=== PATIENT | male | born 1965 | race Caucasian/White ===

== ENCOUNTER 2017-01-15 20:52 | Emergency (ER) | payer OTHER ==
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
[~2017-01-15 20:52] MED LIST: ACTOS45 MG PO; ASPIRIN EC81 MG PO; BACTROBAN 2% OI22 GM TOP; CELEBREX200 MG PO; COLACE100 MG PO; COREG25 MG PO; COZAAR25 MG PO; COZAAR50 MG PO; FLOMAX0.4 MG PO; GLUCOPHAGE1000 MG; GLUCOPHAGE1000 MG PO; GUIATUSS AC 1515 ML PO; HUMALOG KW200 UNIT/1 SUB-Q; HUMALOG SUB-Q; HUMALOG100 UNIT/1 SUB-Q; K-TAB 10MEQ10 MEQ PO; LANTUS (IN100 UNIT/M SUB-Q; LASIX20 MG PO; LEVEMIR FL100 UNIT/1 SUB-Q; LEVEMIR100 UNIT/1 SUB-Q; LEXAPRO10 MG PO; LIPITOR40 MG PO; LYRICA 100MG C100 MG PO; MILK OF MA400 MG/5 M PO; MIRALAX17 GM PO; MOBIC15 MG PO; MUCINEX600 MG PO; NEURONTIN300 MG PO; NEURONTIN600 MG; NEURONTIN800 MG PO; NITROSTAT 0.40.4 MG SL; NORCO 5-325 MG1 TAB PO; NORVASC2.5 MG PO; NORVASC5 MG PO; NOVOLOG100 UNIT/M SUB-Q; NUCYNTA100 MG PO; OCEAN NASAL) (A44 ML NOSE; OPANA ER5 MG PO; OXYCONTIN EXTEN20 MG PO; PAXIL20 MG PO; PERCOCET 10-321 EACH PO; PERCOCET 5-3251 EACH PO; PLAVIX75 MG PO; PROVENTIL OR V6.7 GM INH; ROBITUSSIN100 MG/5 M PO; SENOKOT S (S1 TABLET PO; SURFAK240 MG PO; TOUJEO SOL300 UNIT/1 SUB-Q; VALIUM5 MG PO; XANAX1 MG PO; XANAX2 MG PO
== END 2017-01-15 21:58 | disposition disaster alternative care site (69) ==
LOC: GMED 20:52
DX: M79.645 Pain in left finger(s) (principal); I10 Essential (primary) hypertension; E11.9 Type 2 diabetes mellitus without complications; E78.5 Hyperlipidemia, unspecified; M19.90 Unspecified osteoarthritis, unspecified site; I25.10 Atherosclerotic heart disease of native coronary artery without angina pectoris; Z98.890 Other specified postprocedural states; Z88.6 Allergy status to analgesic agent; Z98.1 Arthrodesis status; Z90.49 Acquired absence of other specified parts of digestive tract
CPT/HCPCS: J1170; J2550

== ENCOUNTER 2017-02-06 20:34 | Emergency (ER) | payer OTHER ==
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
== END 2017-02-06 21:02 | disposition disaster alternative care site (69) ==
LOC: GMED 20:34
DX: M79.602 Pain in left arm (principal); Z98.890 Other specified postprocedural states; Z88.6 Allergy status to analgesic agent; Z79.82 Long term (current) use of aspirin; Z79.899 Other long term (current) drug therapy; Z79.84 Long term (current) use of oral hypoglycemic drugs
CPT/HCPCS: J1170; J2550

== ENCOUNTER 2017-03-23 19:08 | Emergency (ER) | payer OTHER ==
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
== END 2017-03-23 20:59 | disposition disaster alternative care site (69) ==
LOC: GMED 19:08
DX: M25.461 Effusion, right knee (principal); G89.29 Other chronic pain; E11.9 Type 2 diabetes mellitus without complications; E78.00 Pure hypercholesterolemia, unspecified; E66.9 Obesity, unspecified; F19.10 Other psychoactive substance abuse, uncomplicated; Z88.8 Allergy status to other drugs, medicaments and biological substances; Z79.84 Long term (current) use of oral hypoglycemic drugs; W19.XXXA Unspecified fall, initial encounter; Y92.002 Bathroom of unspecified non-institutional (private) residence as the place of occurrence of the external cause
CPT/HCPCS: J1170

== ENCOUNTER 2017-03-24 21:44 | Emergency (ER) | payer OTHER ==
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
== END 2017-03-24 23:23 | disposition disaster alternative care site (69) ==
LOC: GMED 21:44
DX: S82.201A Unspecified fracture of shaft of right tibia, initial encounter for closed fracture (principal); S82.401A Unspecified fracture of shaft of right fibula, initial encounter for closed fracture; E11.9 Type 2 diabetes mellitus without complications; Z88.6 Allergy status to analgesic agent; Z79.4 Long term (current) use of insulin; Z79.899 Other long term (current) drug therapy; W19.XXXA Unspecified fall, initial encounter
CPT/HCPCS: J2270

== ENCOUNTER 2017-03-28 23:26 | Emergency (ER) | payer OTHER ==
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
== END 2017-03-29 00:49 | disposition disaster alternative care site (69) ==
LOC: GMED 23:26
DX: M79.604 Pain in right leg (principal); I10 Essential (primary) hypertension; E78.00 Pure hypercholesterolemia, unspecified; E11.9 Type 2 diabetes mellitus without complications; G89.29 Other chronic pain; M54.9 Dorsalgia, unspecified; Z79.84 Long term (current) use of oral hypoglycemic drugs
CPT/HCPCS: J1170

== ENCOUNTER 2017-04-15 22:36 | Emergency (ER) | payer OTHER ==
--- NOTE | ~2017-04-15 | ER ---
[facility] AGE: 51 Y [address] ROOM: [place] [address] LOCATION: [facility] ADMIT DATE: 04/15/2017 ER/Outpatient Report DISCHARGE DATE: 04/15/2017 FAMILY PHYSICIAN: Physician, Unknown ATTENDING PHYSICIAN: Bruno Bernard Admission date and time documented on the medical record. I saw the patient at 2245 hours. CHIEF COMPLAINT: Chronic pain with exacerbation. HISTORY OF PRESENT ILLNESS: This is a 51-year-old male who comes in with chronic pain, right leg and left arm. It seemed to be worse today, it was out of control, presented for evaluation. No other complaints. HOME MEDICATIONS: See attached medication list. ALLERGIES: TORADOL. SOCIAL HISTORY: Nonsmoker and nondrinker. SIGNIFICANT PAST MEDICAL HISTORY: Atherosclerotic ischemic heart disease, coronary artery disease, hypertension, insulin-dependent diabetes mellitus type 2, chronic back pain, dyslipidemia, degenerative joint disease, and degenerative osteoarthritis. OPERATIONS: Pain stimulator placement, open reduction and internal fixation of right tib- fib fracture and left elbow fracture, cervical fusion, appendectomy, and cardiac catheterization with PTCA and stenting. REVIEW OF SYSTEMS: All systems reviewed by me are negative with the exception of those discussed in the history of present illness. PHYSICAL EXAMINATION: VITAL SIGNS: Temperature 98.3 tympanic, pulse 96, and respirations 16. HEENT: Negative. LUNGS: Clear. HEART: Regular. [facility] AGE: 51 Y [address] ROOM: [place] [address] LOCATION: [facility] ADMIT DATE: 04/15/2017 ER/Outpatient Report DISCHARGE DATE: 04/15/2017 FAMILY PHYSICIAN: Physician, Unknown ATTENDING PHYSICIAN: Bruno Bernard ABDOMEN: Soft and nontender. Good bowel tones. NEUROVASCULAR: Appears to be intact. IMPRESSION: Chronic pain with exacerbation. PLAN: The patient was given Dilaudid 1 mg plus Valium 10 mg IM in the emergency room. Discharge to home. Observation. Activity as tolerated. Continue present home medications and care. Percocet 10/325 one every 4 to 6 hours as needed for pain #12. Follow up with personal physician as needed or as scheduled. MD CRISTIAN PERLA/melissa /[id number] d: 04/16/17 0230 t: 04/19/17 1821, OUTPATIENT REPORT
== END 2017-04-15 23:20 | disposition disaster alternative care site (69) ==
LOC: GMED 22:36
DX: G89.29 Other chronic pain (principal); M79.604 Pain in right leg; M79.602 Pain in left arm; I10 Essential (primary) hypertension; E11.9 Type 2 diabetes mellitus without complications; E78.5 Hyperlipidemia, unspecified; I25.10 Atherosclerotic heart disease of native coronary artery without angina pectoris; Z88.8 Allergy status to other drugs, medicaments and biological substances; Z90.49 Acquired absence of other specified parts of digestive tract; Z96.0 Presence of urogenital implants; Z95.9 Presence of cardiac and vascular implant and graft, unspecified
CPT/HCPCS: J1170; J3360